=== PATIENT | male | born 1990 | race African-American/Black ===

== ENCOUNTER 2019-12-08 14:09 | Emergency (ER) | payer OTHER, SELFPAY ==
[2019-12-08 15:41] VITALS: BP 114/74; PULSE 105; RESP 18; TEMP 37.2; O2SAT 100
--- NOTE | 2019-12-08 17:04 | ED.GENADULT ---
HPI - General Adult General Chief complaint: Unspecified Stated complaint: feeling sick Time Seen by Provider: 12/08/19 16:48 Source: patient History of Present Illness HPI narrative: Patient is a 29 y/o male complaining of bed bug bite from last week. He states that his lower legs are severely itchy. There is no alleviating factor. He also feels heart palpitation. He denies any fever or chills. Related Data Home Medications Medication Instructions Recorded Confirmed No Home Medications 03/19/19 03/19/19 Allergies Allergy/AdvReac Type Severity Reaction Status Date / Time No Known Allergies Allergy Unverified 07/29/17 10:49 Review of Systems Constitutional: Constitutional: Denies chills, Denies fever(s), Denies headache(s) and Denies weakness Eyes: Eyes: Denies blurry vision ENT: Denies headache(s) and Denies neck pain Cardiovascular: Cardiovascular: Denies chest pain and Denies dyspnea Respiratory: Respiratory: Denies cough and Denies dyspnea Gastrointestinal: Gastrointestinal: Denies abdominal pain, Denies diarrhea, Denies nausea and Denies vomiting Genitourinary: Genitourinary: Denies hematuria and Denies dysuria Musculoskeletal: Musculoskeletal: Denies back pain and Denies neck pain Integumentary/Breasts: Skin/Breast: Reports as per HPI, Reports pruritus and Reports erythema Neurologic: Denies headache(s) and Denies weakness PMFSH Past Medical History Medical History Hidradenitis suppurativa Surgical History Surgical History S/P small bowel resection Family History Family History Sibling [place] disease Other No family history of abnormal heart rhythm Social History Social History Social History: Patient is single. He does have a 5-year-old son. He is a full code. He currently works for the [employer]. Years smoked: 5 Smoking status: Former smoker Second hand tobacco smoke exposure: No Alcohol intake: current Substance use: never Substance use type: does not use Additional occupation/education comments: Pt works with the post office. Gender identity (if verbalized by the patient): Male Spiritual care concerns: No Exam Const: General: no acute distress and well developed Orientation/consciousness: oriented to person, oriented to place, oriented to time and patient oriented x3 HENMT: Head: normocephalic Ears: external ears normal General nose exam: Normal external nose present Eyes: General: appearance normal, both eyes and all related structures Conjunctivae: conjunctivae normal Neck: Neck: normal visual inspection and full ROM Chest: Chest palpation & inspection: normal inspection of the chest and no tenderness Resp: Effort & Inspection: normal respiratory effort Auscultation: clear to auscultation bilaterally Cardio: Rate: tachycardic Rhythm: regular rhythm GI: GI Palp: No abdominal tenderness and Yes Soft to palpation Skin: General skin exam: normal color and turgor normal Rashes: rashes noted (bilateral legs) Neuro: General: oriented to person, oriented to place, oriented to time and patient oriented x3 Cognition (Neuro): normal cognition Extrem: General: normal to inspection, full ROM and no pedal edema Psych: Appearance: grossly normal Mental Status: mental status grossly normal Affect: normal affect Course Vital Signs Vital signs: Vital Signs Temperature 37.2 C 12/08/19 15:41 Pulse Rate 105 H 12/08/19 15:41 Respiratory Rate 18 12/08/19 15:41 Blood Pressure 114/74 12/08/19 15:41 Pulse Oximetry 100 12/08/19 15:41 Temperature 37.2 C 12/08/19 15:41 Pulse Rate 98 12/08/19 19:23 Respiratory Rate 16 12/08/19 19:23 Blood Pressure 124/89 12/08/19 19:23 Pulse Oximetry 99 12/08/19 19:23
--- NOTE | 2019-12-08 17:09 | ECG_ITS ---
Measurements Intervals [place] Rate: 69 P: 56 IA: 143 QRS: 51 QRSD: 94 T: 47 QT: 409 QTc: 441 Interpretive Statements SINUS RHYTHM INCOMPLETE RIGHT BUNDLE BRANCH BLOCK BASELINE WANDER- I, II, AVL, V2-V3 BORDERLINE ECG Electronically Signed On 12-08-2019 18:40:45 CDT by Parth Yadav D.O.
[2019-12-08 17:25] LABS: Basophils Absolute Auto 0.1 K/mm3 (0.0-0.1); Basophils Percent Auto 0.8 % (0.2-1.2); Eosinophils Absolute Auto 0.1 K/mm3 (0-0.3); Eosinophils Percent Auto 0.7 % (0-4.4); Hematocrit 32.6 % (42.0-52.0); Immature Granulocyte Absolute 0.04 K/mm3 (0.00-0.031); Immature Granulocyte Percent A 0.6 % (0-0.5); Lymphocytes Absolute Auto 1.71 K/mm3 (0.9-3.2); Lymphocytes Percent Auto 23.8 % (18.3-44.2); Mean Corpuscular HGB Conc 30.7 g/dl (32-36); Mean Corpuscular Hemoglobin 23.3 pg (26-34); Mean Platelet Volume 9.6 fl (7.4-10.4); Monocytes Absolute Auto 0.8 K/mm3 (0.1-0.6); Monocytes Percent Auto 10.6 % (2.6-8.5); Neutrophils Absolute Auto 4.6 K/mm3 (1.3-6.7); Neutrophils Percent Auto 63.5 % (45.5-73.1); Platelet Count Result 417 k/mm3 (150-375); Red Blood Count 4.29 M/mm3 (4.6-6.20); Red Cell Distribution Width 15.9 % (11.5-14.5); White Blood Count 7.2 K/mm3 (4.5-10.0)
[2019-12-08 17:29] LABS: Add Urine Microscopic? YES; Appearance Urine Clear (Clear); Bacteria Urine Trace /hpf; Bilirubin Urine 1+ (Negative); Blood Urine Negative (Negative); Color Urine Yellow (Yellow); Glucose Urine UA Negative (Negative); Ketones Urine Negative (Negative); Leukocyte Esterase Ur Negative LEU/UL (Negative); Mucus Urine Heavy /lpf; Nitrate Urine Negative (Negative); Protein Urine 2+ mg/dL (Negative); RBC Urine 0-2 /hpf (0-2); Specific Grav Ur 1.025 (1.001-1.035); Squamous Epithelial Cell Urine Rare /hpf (Few); WBC Urine 0-3 /hpf
[2019-12-08 17:38] LABS: Anion Gap 12 mmol/L (8-16); Blood Urea Nitrogen 11 mg/dL (9-20); Calcium 9.6 mg/dL (8.4-10.2); Carbon Dioxide 29 mmol/L (22-30); Chloride 94 mmol/L (98-107); Estimated CRCL calculation 93 ml/min; Estimated Glomerular Filt Rate > 60; Glucose 106 mg/dL (75-110); Potassium 2.9 mmol/L (3.4-5.0); Sodium 135 mmol/L (137-145)
[2019-12-08 17:47] LABS: Amphetamine Screen Urine Negative (Negative); Barbiturate Screen Urine Negative (Negative); Benzodiazepines Screen Urine Negative (Negative); Cannabinoid Screen Urine Positive (Negative); Cocaine Screen Urine Negative (Negative); Methadone Screen Urine Negative (Negative); Opiate Screen Urine Negative (Negative); Phencyclidine Screen Urine Negative (Negative)
[2019-12-08 19:23] VITALS: BP 124/89; PULSE 98; RESP 16; O2SAT 99
[2019-12-08] MEDS: POTASSIUM CHLORIDE 20 MEQ TABLET 40 MEQ PO (19:31)
== END 2019-12-08 19:32 | disposition home or self-care (01) ==
PROVIDERS: Emergency Provider Emergency Medicine
DX: R21 Rash and other nonspecific skin eruption (principal); E87.6 Hypokalemia; D64.9 Anemia, unspecified; I45.10 Unspecified right bundle-branch block
CPT/HCPCS: 36415; 80048; 80307; 81001; 85025; 93005; 99283; A9270

== ENCOUNTER 2020-08-27 14:40 | Observation (INO) | payer OTHER, SELFPAY ==
[2020-08-27] VITALS (26 sets, daily range): BP systolic 127–154; BP diastolic 76–97; PULSE 80–108; RESP 4–18; TEMP 36.3–37.5; O2SAT 97–100; BMI 17.2
--- NOTE | ~2020-08-27 | CT_ITS ---
EXAMINATION: CT abdomen pelvis wo con DATE: 08/27/2020 23:07 INDICATION: Nausea, vomiting and anemia TECHNIQUE: Computed tomography (CT) of the abdomen and pelvis was performed without intravenous contr ast. Automated exposure control and iterative reconstruction technique were employed. The dose-length product was 176.58 mGy-cm. COMPARISON: None FINDINGS: Lung bases are clear. Heart size is normal. No pericardial or pleural effusion. Marked diffuse hepati c steatosis. Gallbladder, spleen, pancreas, bilateral adrenal glands and kidneys are normal. There ar e suture lines along the lesser and greater curvature of the proximal stomach. Bowels including the a ppendix are normal. Bladder and prostate are normal. No free intraperitoneal gas or fluid. No patholo gically enlarged abdominal or pelvic lymphadenopathy. Chronic bilateral L5 pars intra-articular is de fects with 2 mm anterolisthesis on S1. IMPRESSION: 1. No acute intra-abdominal/pelvic process. 2. Prominent diffuse hepatic steatosis. 3. 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 Reviewed, dictated and finalized at location A.
[2020-08-27 15:06] LABS: Basophils Percent Auto 0.2 % (0.2-1.2); Hematocrit 32.6 % (42.0-52.0); Hemoglobin 9.3 g/dL (14.0-18.0); Immature Granulocyte Absolute 0.03 K/mm3 (0.00-0.031); Immature Granulocyte Percent A 0.3 % (0-0.5); Lymphocytes Absolute Auto 0.55 K/mm3 (0.9-3.2); Lymphocytes Percent Auto 5.6 % (18.3-44.2); Mean Corpuscular HGB Conc 28.5 g/dl (32-36); Mean Corpuscular Volume 70.3 fl (80-100); Mean Platelet Volume 10.2 fl (7.4-10.4); Monocytes Absolute Auto 0.8 K/mm3 (0.1-0.6); Monocytes Percent Auto 8.6 % (2.6-8.5); Neutrophils Absolute Auto 8.3 K/mm3 (1.3-6.7); Neutrophils Percent Auto 85.3 % (45.5-73.1); Platelet Count Result 265 k/mm3 (150-375); Red Blood Count 4.64 M/mm3 (4.6-6.20); Red Cell Distribution Width 18.3 % (11.5-14.5); White Blood Count 9.7 K/mm3 (4.5-10.0)
[2020-08-27 15:18] LABS: Hypochromasia 1+ (NORMAL); Ovalocytes 1+ (NORMAL); Platelet Estimate Adequate (Adequate)
[2020-08-27 15:27] LABS: Alanine Aminotransferase 224 U/L (4-50); Albumin Level 5.9 g/dL (3.5-5.1); Alkaline Phosphatase 157 U/L (38-126); Anion Gap 32 mmol/L (8-16); Bilirubin,Total 2.1 mg/dL (0.2-1.3); Blood Urea Nitrogen 12 mg/dL (9-20); Calcium 10.8 mg/dL (8.4-10.2); Carbon Dioxide 13 mmol/L (22-30); Chloride 93 mmol/L (98-107); Creatine Kinase 508 U/L (55-170); Estimated CRCL calculation 63 ml/min; Estimated Glomerular Filt Rate > 60; Glucose 118 mg/dL (75-110); Potassium 4.3 mmol/L (3.4-5.0); Sodium 138 mmol/L (137-145)
[2020-08-27 15:36] LABS: Aspartate Amino Transferase 904 U/L (17-59)
--- NOTE | 2020-08-27 18:37 | ED.GENADULT ---
HPI - General Adult General Chief complaint: Unspecified Stated complaint: cramping Time Seen by Provider: 08/27/20 18:17 History of Present Illness HPI narrative: 29 yo male with no known medical history presents to the ED for cramping. He reports that he has had diffuse cramping of his entire body since leaving work this morning at midnight. He also reports vomiting and diaphoresis. He works in a hot factory and thinks that he just didn't drink enough water. He had a similar presentation last year and was found to have significant lactic acidosis as well as a few other metabolic abnormalities. Related Data Home Medications Medication Instructions Recorded Confirmed No Home Medications 03/19/19 03/19/19 Allergies Allergy/AdvReac Type Severity Reaction Status Date / Time No Known Allergies Allergy Unverified 07/29/17 10:49 Review of Systems Review of Systems: All systems reviewed & are unremarkable except as noted in HPI and below Constitutional: Constitutional: Denies fever(s) Eyes: Eyes: Reports no additional eye complaints ENT: Reports system reviewed and no additional complaints, except as documented Cardiovascular: Cardiovascular: Denies chest pain Respiratory: Respiratory: Denies dyspnea Gastrointestinal: Gastrointestinal: Denies abdominal pain Neurologic: Reports system reviewed and no additional complaints, except as documented [facility] Past Medical History Medical History (Updated 08/27/20 @ 22:01 by Johnathan Andersen MD) Hidradenitis suppurativa Surgical History Surgical History S/P small bowel resection Family History Family History Sibling [place] disease Other No family history of abnormal heart rhythm Social History Social History Social History: Patient is single. He does have a 5-year-old son. He is a full code. He currently works for the [employer]. Years smoked: 5 Smoking status: Former smoker Second hand tobacco smoke exposure: No Alcohol intake: current Substance use: never Substance use type: does not use Additional occupation/education comments: Pt works with the post office. Gender identity (if verbalized by the patient): Male Spiritual care concerns: No Exam Const: General: cooperative, comfortable and alert Nutritional Appearance: thin Orientation/consciousness: patient oriented x3 HENMT: Head: normal to inspection Eyes: Pupils: Equal, round and reactive pupils present Neck: Neck: normal visual inspection and no lymphadenopathy Chest: Chest palpation & inspection: no tenderness Resp: Effort & Inspection: normal respiratory effort Auscultation: clear to auscultation bilaterally, no rales, no rhonchi and no wheezes Cardio: Jugular venous distension: no JVD Rate: regular rate Rhythm: regular rhythm Heart sounds: no murmurs GI: Inspection: non-distended GI Palp: Yes Soft to palpation and No Tenderness to palpation present (GI) Skin: General skin exam: normal color Neuro: General: patient oriented x3 and moves all extremities Speech: normal speech Extrem: General: no edema Psych: Appearance: well kempt Affect: normal affect Course Vital Signs Vital signs: Vital Signs Temperature 36.3 C L 08/27/20 14:45 Pulse Rate 108 H 08/27/20 14:45 Respiratory Rate 18 08/27/20 14:45 Blood Pressure 137/95 H 08/27/20 14:45 Pulse Oximetry 100 08/27/20 14:45 Temperature 36.3 C L 08/27/20 14:45 Pulse Rate 100 08/27/20 19:00 Respiratory Rate 12 08/27/20 19:01 Blood Pressure 154/90 H 08/27/20 20:15 Pulse Oximetry 100 08/27/20 20:01 Medical Decision Making MDM Narrative Medical decision making narrative: He has multiple lab abnormlities suggesting dehydration and malnutrition. I will admit for observation Medical Record
[2020-08-27] MEDS: LACTATED RINGERS 1,000 ML 999 ML IV CONT (18:53)
--- NOTE | 2020-08-27 19:01 | PC.NURSE ---
Pt. respirations were not 4 breaths a min. Charted in error.
[2020-08-27 19:15] LABS: Alveolar/Arterial O2 Gradient 20.8 mmHg; Base Excess ABG -3.5 mEq/l (+/-2.0); Device ROOM AIR; Fractional Inspired Oxygen 21 %; HCO3 ABG 19.1 mEq/l (22.0-26.0); Oxygen Saturation ABG 97.9 % (95.0-100.0); Oxyhemoglobin 95.9 % THb (90.0-100.0); PCO2 ABG 26.4 mmHg (35.0-45.0); PO2 ABG 97.3 mmHg (80.0-100.0); PO2 FiO2 Ratio Arterial Blood 4.63 %; Site Drawn RIGHT BRACHIAL; Total Hemoglobin 9.5 g/dL (12.0-18.0); pH ABG 7.478 (7.350-7.450)
[2020-08-27] MEDS: SODIUM CHLORIDE 0.9% IV 1,000 ML 999 ML IV CONT (19:19)
--- NOTE | 2020-08-27 19:20 | PC.NURSE ---
Report received from RUBEN Franz. Pt's IVF continue to infuse, additional IVF initiated. Pt made aware of need for urine collection and given urinal. Denies needs at present.
[2020-08-27 19:27] LABS: Immature Reticulocyte Fraction 24.7 % (3.0-15.9); Reticulocyte Percent 1.38 % (0.7-4.3); Reticulocytes Absolute 0.06 B/L (32.2-175.7)
[2020-08-27 19:38] LABS: Lactic Acid Reflex 2.4 mmol/L (0.7-2.1)
[2020-08-27 19:41] LABS: INR 1.2; Partial Thromboplastin Time 25.3 SECONDS (22.3-36.8); Prothrombin Time 15.6 Seconds (11.1-14.7)
[2020-08-27 19:55] LABS: Iron 123 ug/dL (49-181)
[2020-08-27 20:04] LABS: Percent Iron Saturation 23 % (20-50)
--- NOTE | 2020-08-27 20:42 | PC.NURSE ---
Pt states is feeling a lot better . UA collected and sent.
[2020-08-27 20:49] LABS: Folic Acid 2.4 ng/mL (2.76->20)
[2020-08-27 21:04] LABS: Add Urine Microscopic? YES; Amorphous Sediment Urine Few; Appearance Urine Cloudy (Clear); Bacteria Urine Trace /hpf; Bilirubin Urine Negative (Negative); Blood Urine 1+ (Negative); Color Urine Amber (Yellow); Glucose Urine UA Negative (Negative); Hyaline Casts Urine 50+ /lpf; Ketones Urine 2+ mg/dL (Negative); Leukocyte Esterase Ur Negative LEU/UL (Negative); Mucus Urine Few /lpf; Nitrate Urine Negative (Negative); Protein Urine 3+ mg/dL (Negative); RBC Urine 0-2 /hpf (0-2); Specific Grav Ur 1.026 (1.001-1.035); Squamous Epithelial Cell Urine Few /hpf (Few); WBC Urine 0-3 /hpf
[2020-08-27 22:23] LABS: Reflex Lactic Acid Yes or No Add Lactic
[2020-08-27] MEDS: LACTATED RINGERS 1,000 ML 125 ML IV CONT (22:48)
[2020-08-27 22:51] LABS: Lactic Acid 1.1 mmol/L (0.7-2.1)
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
--- NOTE | 2020-08-27 23:40 | ADMGEN ---
This patient, Gerson Geiger, was admitted to [facility] Surg Room 312-01. Patient/family oriented to hospital policies and general routines including ID bracelet, bed and alarms, visiting hours, pain management, procedures, bathroom and other care routines, personal items, smoking policy, room service/diet, and visiting hours. Information on how to activate the Rapid Response Team has been discussed. Patient/Family are encouraged to report perceived risks to care and to ask questions if they do not understand what they are told or what they should do.
[2020-08-28] MEDS: THIAMINE HCL INJ 100 MG, FOLIC ACID INJ 1 MG, MULTIVITAMINS-12 INJ VIAL 1 5 ML, MULTIVI... IV CONT (00:04)
[2020-08-28 06:00] VITALS: BP 135/77; PULSE 76; RESP 18; TEMP 37.2; O2SAT 100
[2020-08-28 06:44] LABS: Basophils Percent Auto 0.3 % (0.2-1.2); Eosinophils Absolute Auto 0.1 K/mm3 (0-0.3); Eosinophils Percent Auto 2.1 % (0-4.4); Hematocrit 28.3 % (42.0-52.0); Hemoglobin 8.2 g/dL (14.0-18.0); Immature Granulocyte Absolute 0.03 K/mm3 (0.00-0.031); Immature Granulocyte Percent A 0.5 % (0-0.5); Lymphocytes Absolute Auto 0.97 K/mm3 (0.9-3.2); Lymphocytes Percent Auto 16.9 % (18.3-44.2); Mean Corpuscular Hemoglobin 19.9 pg (26-34); Mean Corpuscular Volume 68.7 fl (80-100); Mean Platelet Volume 10.9 fl (7.4-10.4); Monocytes Absolute Auto 0.7 K/mm3 (0.1-0.6); Neutrophils Absolute Auto 3.9 K/mm3 (1.3-6.7); Neutrophils Percent Auto 68.2 % (45.5-73.1); Platelet Count Result 207 k/mm3 (150-375); Red Blood Count 4.12 M/mm3 (4.6-6.20); Red Cell Distribution Width 17.9 % (11.5-14.5); White Blood Count 5.7 K/mm3 (4.5-10.0)
[2020-08-28 06:53] LABS: Alanine Aminotransferase 152 U/L (4-50); Albumin Level 4.6 g/dL (3.5-5.1); Alkaline Phosphatase 114 U/L (38-126); Anion Gap 12 mmol/L (8-16); Aspartate Amino Transferase 502 U/L (17-59); Bilirubin,Total 0.9 mg/dL (0.2-1.3); Blood Urea Nitrogen 13 mg/dL (9-20); Calcium 9.2 mg/dL (8.4-10.2); Carbon Dioxide 25 mmol/L (22-30); Chloride 100 mmol/L (98-107); Estimated CRCL calculation 83 ml/min; Estimated Glomerular Filt Rate > 60; Glucose 97 mg/dL (75-110); Sodium 137 mmol/L (137-145)
[2020-08-28 07:19] LABS: Hypochromasia 1+ (NORMAL); Ovalocytes 1+ (NORMAL); Platelet Estimate Adequate (Adequate); Poikilocytosis 1+ (NORMAL)
[2020-08-28 07:20] LABS: Target Cells 1+ (NORMAL)
[2020-08-28 08:00] VITALS: O2SAT 100
[2020-08-28 10:08] VITALS: O2SAT 97
[2020-08-28] MEDS: LACTATED RINGERS 1,000 ML 125 ML IV CONT (10:58)
[2020-08-28 14:00] VITALS: BP 131/83; PULSE 89; RESP 20; TEMP 37.2; O2SAT 100
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
[2020-08-28 22:00] VITALS: BP 129/82; PULSE 60; RESP 18; TEMP 36.6; O2SAT 97
[2020-08-28] MEDS: LACTATED RINGERS 1,000 ML 50 ML IV CONT (22:33)
[2020-08-29 05:54] VITALS: BP 144/78; PULSE 58; RESP 16; TEMP 36.4; O2SAT 100
[2020-08-29 07:51] LABS: Hepatitis B Surface Antigen Negative (Negative)
[2020-08-29 07:55] LABS: Hematocrit 26.3 % (42.0-52.0); Hemoglobin 7.6 g/dL (14.0-18.0); Mean Corpuscular HGB Conc 28.9 g/dl (32-36); Mean Corpuscular Hemoglobin 19.9 pg (26-34); Mean Platelet Volume 10.4 fl (7.4-10.4); Platelet Count Result 175 k/mm3 (150-375); Red Blood Count 3.81 M/mm3 (4.6-6.20); Red Cell Distribution Width 18.2 % (11.5-14.5); White Blood Count 4.2 K/mm3 (4.5-10.0)
[2020-08-29 08:08] LABS: Hepatitis C Virus Antibody Negative (Negative)
[2020-08-29 10:11] LABS: Alanine Aminotransferase 137 U/L (4-50); Albumin Level 4.2 g/dL (3.5-5.1); Alkaline Phosphatase 94 U/L (38-126); Anion Gap 10 mmol/L (8-16); Aspartate Amino Transferase 377 U/L (17-59); Bilirubin,Total 0.7 mg/dL (0.2-1.3); Blood Urea Nitrogen 12 mg/dL (9-20); Calcium 9.3 mg/dL (8.4-10.2); Carbon Dioxide 25 mmol/L (22-30); Chloride 102 mmol/L (98-107); Estimated CRCL calculation 108 ml/min; Estimated Glomerular Filt Rate > 60; Glucose 89 mg/dL (75-110); Potassium 3.7 mmol/L (3.4-5.0); Sodium 137 mmol/L (137-145)
[2020-08-29 10:17] LABS: Iron 28 ug/dL (49-181)
--- NOTE | 2020-08-29 10:21 | PM.DS ---
DS: Admitting Diagnosis Admitting Diagnosis Admitting Diagnosis: Nausea with emesis and abdominal pain DS: Discharge Diagnosis Discharge Diagnosis (1) Dehydration: Code(s): E86.0 - Dehydration Status: Acute Assessment and Plan: Possible viral GE Possibly related to cannabis use IV fluids Push oral intake F/u labs as outpatient (2) Elevated LFTs: Code(s): R94.5 - Abnormal results of liver function studies Status: Acute Assessment and Plan: Hx GILES Possible contribution from intermittent alcohol use Less likely viral hepatitis LFTs improving Needs f/u with PCP (3) Acidosis, lactic: Code(s): E87.2 - Acidosis Status: Acute Assessment and Plan: Resolved (4) Leukocytosis: Qualifiers: Leukocytosis type: other Qualified Code(s): D72.828 - Other elevated white blood cell count Code(s): D72.829 - Elevated white blood cell count, unspecified Status: Acute Assessment and Plan: Likely demargination Resolved. (5) History of partial gastrectomy: Code(s): Z90.3 - Acquired absence of stomach [part of] Status: Acute Assessment and Plan: Patient with history of partial gastric demonstrated by CT scan this in part explains the patient's nutritional deficiency (6) Iron deficiency anemia: Qualifiers: Iron deficiency anemia type: unspecified iron deficiency Qualified Code(s): D50.9 - Iron deficiency anemia, unspecified Code(s): D50.9 - Iron deficiency anemia, unspecified Status: Acute Assessment and Plan: Likely secondary to partial gastrectomy. Also low folic acid, so supplement IV then PO Follow-up in outpatient setting (7) Chronic abdominal pain: Code(s): R10.9 - Unspecified abdominal pain; G89.29 - Other chronic pain Status: Acute Assessment and Plan: Supportive care (8) Cannabis abuse: Code(s): F12.10 - Cannabis abuse, uncomplicated Status: Acute Assessment and Plan: Likely contributing to nausea and vomiting. Discussed with patient. DS: Summary Hospital Course Reason for hospitalization: Nausea vomiting and abdominal discomfort Hospital Course: Patient was admitted with nausea vomiting abdominal pain. He had anemia and leukopenia no was chronic. History of partial gastrectomy and malnutrition. Chronic user of cannabis. History of non alcoholic steatohepatitis as well as chronic abdominal pain. CT scan revealed fatty liver. No acute abnormalities. IV fluid and anti emetics controlled his symptoms. By day of discharge she was tolerating his diet. He was found to have both iron deficiency and folate deficiency. B12 was adequate. Status at Discharge Overall status at discharge: patient is back to baseline Time Spent with Patient Time attestation: Total time spent providing and/or coordinating discharge services: Time spent: Greater than 30 minutes Exam Narrative: Exam Narrative: HEENT: PERRL, sclerae nonicteric, pharyngeal mucosa pink and intact NECK: No JVD CHEST: Clear to auscultation. Normal effort. HEART: NL S1/S2, regular, no murmur ABDOMEN: BS+, soft, nontender, no mass, no bruits EXTREMITIES: No cyanosis, edema, or clubbing NEUROLOGIC: CN intact and symmetric to inspection. MUSCULOSKELETAL: Tone and strength symmetric. PSYCH: Alert. Oriented to person, place, and time. DS: Data Data Completed and Pending Labs on day of discharge: Labs from last 24 hours 08/29/20 08/29/20 08/29/20 06:11 06:11 06:11 WBC 4.2 L RBC 3.81 L Hgb 7.6 L Hct 26.3 L MCV 69.0 L MCH 19.9 L MCHC 28.9 L RDW 18.2 H Plt Count 175 MPV 10.4 Sodium 137 Potassium 3.7 Chloride 102 Carbon Dioxide 25 Anion Gap 10 BUN 12 Creatinine 0.60 L Estim Creat Clear Calc 108 Estimated GFR > 60 Glucose 89 Calcium 9.3 Iron 28 L TIBC Pending % Saturation Pending Total Bilirubin 0.7
[2020-08-29 10:27] LABS: Percent Iron Saturation 6 % (20-50)
[2020-08-29] MEDS: FOLIC ACID 1 MG/0.2 ML INJ IV PUSH (12:14)
[2020-09-04 09:35] LABS: Hematocrit 29.2 % (38.5-50.0); Hemoglobin 8.7 g/dL (13.2-17.1); MCH 20.5 pg (27.0-33.0); MCV 68.7 FL (80.0-100.0); RDW 19.2 % (11.0-15.0); Red Blood Cell Count 4.25 Mill/uL (4.20-5.80)
== END 2020-08-29 12:20 | disposition home or self-care (01) ==
LOC: ANHED 22:01 → ANH3MEDSUR 08-28 11:05
PROVIDERS: Admitting Provider Internal Medicine; Emergency Provider Emergency Medicine; Visit Provider Internal Medicine
DX: E86.0 Dehydration (principal); R94.5 Abnormal results of liver function studies; E87.2 Acidosis; D50.9 Iron deficiency anemia, unspecified; D52.9 Folate deficiency anemia, unspecified; R10.9 Unspecified abdominal pain; G89.29 Other chronic pain; F12.10 Cannabis abuse, uncomplicated; Z90.3 Acquired absence of stomach [part of]
CPT/HCPCS: 36415; 36600; 74176; 80053; 81001; 82550; 82607; 82728; 82746; 82805; 83021; 83540; 83550; 83605; 84443; 85025; 85027; 85046; 85610; 85730; 86803; 87340; 96360; 96361; 96374; 99285; G0378; J3411; J3475; J7030; J7042; J7120

== ENCOUNTER 2021-11-04 15:40 | Emergency (ER) | payer OTHER, SELFPAY ==
--- NOTE | ~2021-11-04 | CT_ITS ---
EXAMINATION: CT brain wo con DATE: 11/04/2021 16:42 INDICATION: Confusion. TECHNIQUE: Computed tomography (CT) of the head was performed without intravenous contrast. The mA wa s adjusted according to patient size. Iterative reconstruction technique was employed. The dose-lengt h product was 908.00 mGy-cm. COMPARISON: None FINDINGS: There is no intracranial hemorrhage, acute infarction, or abnormal intracranial mass lesion . The ventricles are normal in size. The orbits are normal. There is mild mucosal thickening in the e thmoid sinuses. The mastoid air cells are normal. There is cerumen in left external auditory canal. IMPRESSION: 1. Normal brain. Reviewed, dictated and finalized at location A. IMPRESSION: 1. Normal brain.
[2021-11-04 15:34] VITALS: BP 121/86; PULSE 110; RESP 26; O2SAT 96
--- NOTE | 2021-11-04 15:51 | ECG_ITS ---
Measurements Intervals [place] Rate: 112 P: 73 MT: 175 QRS: -50 QRSD: 100 T: 74 QT: 380 QTc: 520 Interpretive Statements SINUS TACHYCARDIA S1-S2-S3 PATTERN, CONSISTENT WITH PULMONARY DISEASE, RVH, OR NORMAL VARIANT LEFT ANTERIOR FASCICULAR BLOCK [QRS AXIS <= -45, QR IN I, RS IN II] NONSPECIFIC T-WAVE ABNORMALITY COMPARED TO ECG 12/08/2019 17:28:34 SINUS TACHYCARDIA NOW PRESENT RIGHT VENTRICULAR HYPERTROPHY NOW PRESENT T-WAVE ABNORMALITY NOW PRESENT Electronically Signed On 11-05-2021 13:32:39 CDT by Sahra Chowdhury M.D.
[2021-11-04 16:21] LABS: Alanine Aminotransferase 42 U/L (6-50); Albumin Level 5.1 g/dL (3.5-5.1); Alkaline Phosphatase 133 U/L (38-126); Anion Gap 21 mmol/L (8-16); Aspartate Amino Transferase 153 U/L (17-59); Bilirubin,Total 0.6 mg/dL (0.2-1.3); Blood Urea Nitrogen 10 mg/dL (9-20); Calcium 8.7 mg/dL (8.4-10.2); Carbon Dioxide 24 mmol/L (22-30); Chloride 104 mmol/L (98-107); Estimated Glomerular Filt Rate > 60; Glucose 107 mg/dL (65-110); Sodium 149 mmol/L (137-145)
[2021-11-04 16:22] LABS: INR 1.1; Prothrombin Time 13.9 Seconds (11.1-14.7)
--- NOTE | 2021-11-04 16:22 | ED.ALCOHOL ---
HPI - Alcohol General Chief Complaint: Alcohol <Jaison Mcclendon APRN - Last Filed: 11/05/21 19:45> Stated Complaint: altered LOC <Jaison Mcclendon APRN - Last Filed: 11/05/21 19:45> Time Seen by Provider: 11/04/21 15:59 <Jaison Mcclendon APRN - Last Filed: 11/05/21 19:45> History of Present Illness HPI narrative: 31-year-old male presented the emergency room for evaluation of altered mental status. According to EMS, patient was found in the bushes unresponsive. EMS suspected alcohol abuse. On initial exam, patient was not responding appropriately. Patient denies excessive alcohol use. Denies any drug use. Denies any injury or trauma. Patient is alert and oriented x2 <Jaison Mcclendon APRN - Last Filed: 11/05/21 19:45> Related Data Allergies/Adverse Reactions: Allergies Allergy/AdvReac Type Severity Reaction Status Date / Time No Known Allergies Allergy Unverified 07/29/17 10:49 <Jaison Mcclendon APRN - Last Filed: 11/05/21 19:45> Review of Systems Review of Systems: CONSTITUTIONAL: Denies fever, chills, or sweats. EYES: Denies visual changes, redness, or discharge. ENT: Denies rhinorrhea, congestion, sore throat, or otalgia. CARDIOVASCULAR: Denies chest pain, palpitations, or edema. RESPIRATORY: Denies cough or dyspnea. GASTROINTESTINAL: Denies abdominal pain, nausea, vomiting, or diarrhea. GENITOURINARY: Denies dysuria or hematuria. SKIN: Denies rash or itching. MUSCULOSKELETAL: Denies back pain, joint pain, or myalgia. NEUROLOGIC: Denies headache, numbness, dizziness, or weakness. PSYCHIATRIC: Denies anxiety or depression. <Jaison Mcclendon APRN - Last Filed: 11/05/21 19:45> [facility] Past Medical History Medical History: Medical History (Updated 11/05/21 @ 00:00 by Sherita Dachad) Hidradenitis suppurativa <Jaison Mcclendon APRN - Last Filed: 11/05/21 19:45> Surgical History Surgical History: Surgical History S/P small bowel resection <Jaison Mcclendon APRN - Last Filed: 11/05/21 19:45> Family History Family History: Family History Sibling [place] disease Other No family history of abnormal heart rhythm <Jaison Mcclendon APRN - Last Filed: 11/05/21 19:45> Social History Social History: Social History Social History: Patient is single. He does have a 5-year-old son. He is a full code. He currently works for the [employer]. Smoking packs per day: 0.2 Smoking cigarettes per day: 4.0 Years smoked: 5 Smoking pack-years: 1.00 Smoking status: Former smoker Second hand tobacco smoke exposure: No Alcohol intake: current Alcohol use details: He reports drinking 1-16 oz cup of vodka 3-4 times per week. Substance use: never Substance use type: marijuana Last use: 08/24/20 Additional occupation/education comments: Pt works with the post office. Gender identity (if verbalized by the patient): Male Spiritual care concerns: No <Jaison Mcclendon APRN - Last Filed: 11/05/21 19:45> Exam Narrative: GENERAL: Well-appearing, well-nourished, no physical limitations, and in no acute distress. HEAD: Normocephalic, atraumatic. EYES: Conjunctivae normal, PERRLA and EOMI. NECK: Supple. CHEST: Clear to auscultation. No respiratory distress. No wheezes rales or rhonchi. No tenderness. HEART: Regular rate and rhythm. No murmur heard. Normal peripheral pulses. ABDOMEN: Soft, nontender, nondistended, normal active bowel sounds. SKIN: Warm, dry, no rash. No noted wounds NEURO: No focal deficits. Alert and oriented x to. MAEW. CN's II-XI intact bilaterally. Slurring of speech PSYCH: Uncooperative. <Jaison Mcclendon APRN - Last Filed: 11/05/21 19:45> Course Course Emergency Course: 1615: Patient was observed getting up from the bed and attempting to elope. Amrit
[2021-11-04 16:23] LABS: Lactic Acid Reflex 5.7 mmol/L (0.7-2.0)
[2021-11-04 16:28] LABS: Acetaminophen < 10 ug/mL (10-30); Salicylate < 1.0 mg/dL (2-20)
[2021-11-04 16:29] LABS: Ethanol 503 mg/dL (<10)
[2021-11-04] MEDS: SODIUM CHLORIDE 0.9% IV 1,000 ML 999 ML IV CONT ×2 (16:52→20:46)
[2021-11-04 16:55] LABS: Basophils Absolute Auto 0.1 K/mm3 (0.0-0.1); Basophils Percent Auto 1.3 % (0.2-1.2); Eosinophils Absolute Auto 0.1 K/mm3 (0-0.3); Hematocrit 42.4 % (42.0-52.0); Hemoglobin 13.8 g/dL (14.0-18.0); Immature Granulocyte Absolute 0.01 K/mm3 (0.00-0.031); Immature Granulocyte Percent A 0.2 % (0-0.5); Lymphocytes Absolute Auto 1.13 K/mm3 (0.9-3.2); Lymphocytes Percent Auto 21.6 % (18.3-44.2); Mean Corpuscular HGB Conc 32.5 g/dl (32-36); Mean Corpuscular Hemoglobin 32.1 pg (26-34); Mean Corpuscular Volume 98.6 fl (80-100); Mean Platelet Volume 8.7 fl (7.4-10.4); Monocytes Absolute Auto 0.4 K/mm3 (0.1-0.6); Monocytes Percent Auto 7.8 % (2.6-8.5); Neutrophils Absolute Auto 3.6 K/mm3 (1.3-6.7); Neutrophils Percent Auto 68.1 % (45.5-73.1); Platelet Count Result 257 k/mm3 (150-375); Red Cell Distribution Width 15.9 % (11.5-14.5); White Blood Count 5.2 K/mm3 (4.5-10.0)
[2021-11-04] MEDS: THIAMINE HCL 200 MG/2 ML VIAL 100 MG IV PUSH (17:28)
[2021-11-04 18:37] VITALS: RESP 15; O2SAT 96
[2021-11-04 18:47] LABS: Appearance Urine Clear (Clear); Bilirubin Urine Negative (Negative); Blood Urine 2+ (Negative); Color Urine Yellow (Yellow); Glucose Urine UA Negative (Negative); Ketones Urine 2+ mg/dL (Negative); Leukocyte Esterase Ur Negative LEU/UL (Negative); Nitrate Urine Negative (Negative); Protein Urine 3+ mg/dL (Negative); Specific Grav Ur >= 1.030 (1.001-1.035); Urobilinogen Urine 0.2 mg/dL (<2.0); pH Urine 5.5 (5.0-9.0)
[2021-11-04 18:55] LABS: Add Urine Microscopic? YES; Mucus Urine Rare /lpf; Squamous Epithelial Cell Urine Rare /hpf (Few)
[2021-11-04 19:07] LABS: Reflex Lactic Acid Yes or No Add Lactic
[2021-11-04 19:12] LABS: Amphetamine Screen Urine Negative (Negative); Barbiturate Screen Urine Negative (Negative); Benzodiazepines Screen Urine Negative (Negative); Cannabinoid Screen Urine Positive (Negative); Cocaine Screen Urine Negative (Negative); Methadone Screen Urine Negative (Negative); Opiate Screen Urine Negative (Negative); Phencyclidine Screen Urine Negative (Negative)
--- NOTE | 2021-11-04 19:15 | PC.NURSE ---
Bedside report given to RUBEN Stone
[2021-11-04 19:18] VITALS: BP 128/86; PULSE 115; RESP 18; O2SAT 97
[2021-11-04] MEDS: SODIUM CHLORIDE 0.9% IV 500 ML 999 ML IV CONT (19:18)
[2021-11-04 20:10] LABS: Lactic Acid 3.8 mmol/L (0.7-2.0)
[2021-11-04 21:02] VITALS: BP 136/90; PULSE 86; RESP 18; O2SAT 97
== END 2021-11-04 21:04 | disposition home or self-care (01) ==
PROVIDERS: Emergency Medicine; Emergency Provider Nurse Practitioner Family
DX: F10.129 Alcohol abuse with intoxication, unspecified (principal); Y90.8 Blood alcohol level of 240 mg/100 ml or more; R00.0 Tachycardia, unspecified; I44.4 Left anterior fascicular block; R94.31 Abnormal electrocardiogram [ECG] [EKG]
CPT/HCPCS: 36415; 70450; 80053; 80307; 81001; 83605; 85025; 85610; 85730; 87086; 93005; 96361; 96374; 99284; J3411; J7030; J7040

== ENCOUNTER 2022-07-29 11:38 | Emergency (ER) | payer OTHER, SELFPAY ==
[2022-07-29 12:00] VITALS: BP 121/80; PULSE 105; RESP 18; TEMP 36.9; O2SAT 99
[2022-07-29 13:27] LABS: Basophils Absolute Auto 0.1 K/mm3 (0.0-0.1); Eosinophils Percent Auto 0.4 % (0-4.4); Hematocrit 29.6 % (42.0-52.0); Hemoglobin 8.9 g/dL (14.0-18.0); Lymphocytes Absolute Auto 0.84 K/mm3 (0.9-3.2); Lymphocytes Percent Auto 36.4 % (18.3-44.2); Mean Corpuscular HGB Conc 30.1 g/dl (32-36); Mean Corpuscular Hemoglobin 23.4 pg (26-34); Mean Corpuscular Volume 77.9 fl (80-100); Mean Platelet Volume 10.4 fl (7.4-10.4); Monocytes Absolute Auto 0.3 K/mm3 (0.1-0.6); Monocytes Percent Auto 12.6 % (2.6-8.5); Neutrophils Absolute Auto 1.1 K/mm3 (1.3-6.7); Neutrophils Percent Auto 47.6 % (45.5-73.1); Platelet Count Result 124 k/mm3 (150-375); Red Cell Distribution Width 19.1 % (11.5-14.5); White Blood Count 2.3 K/mm3 (4.5-10.0)
[2022-07-29 13:39] LABS: Alanine Aminotransferase 174 U/L (6-50); Alkaline Phosphatase 115 U/L (38-126); Anion Gap 19 mmol/L (8-16); Aspartate Amino Transferase 566 U/L (17-59); Bilirubin,Total 0.7 mg/dL (0.2-1.3); Blood Urea Nitrogen 8 mg/dL (9-20); Calcium 8.8 mg/dL (8.4-10.2); Carbon Dioxide 28 mmol/L (22-30); Chloride 93 mmol/L (98-107); Estimated Glomerular Filt Rate > 60; Glucose 101 mg/dL (65-110); Lipase 164 U/L (23-300); Sodium 140 mmol/L (137-145)
[2022-07-29 13:49] VITALS: BP 115/67; PULSE 115; TEMP 36.6; O2SAT 100
--- NOTE | 2022-07-29 13:49 | ECG_ITS ---
Measurements Intervals [place] Rate: 102 P: 81 WI: 123 QRS: 49 QRSD: 86 T: 71 QT: 347 QTc: 454 Interpretive Statements SINUS TACHYCARDIA VOLTAGE CRITERIA FOR LVH BORDERLINE ST-T WAVE ABNORMALITY- INF/LAT LEADS NONSPECIFIC T-WAVE ABNORMALITY BORDERLINE ECG COMPARED TO ECG 11/04/2021 16:09:12 NO SIGNIFICANT CHANGES Electronically Signed On 07-29-2022 20:49:28 CDT by Parth Yadav D.O.
[2022-07-29 16:25] LABS: Magnesium 2.1 mg/dL (1.6-2.3)
[2022-07-29] MEDS: ONDANSETRON INJ 4 MG/2 ML VIAL IV PUSH (16:33)
[2022-07-29] MEDS: LACTATED RINGERS 1,000 ML 999 ML IV CONT ×2 (16:33→18:10)
[2022-07-29] MEDS: POTASSIUM CHLORIDE 20 MEQ TABLET 40 MEQ PO (16:33)
[2022-07-29 16:51] LABS: Influenza A QL RT-PCR Negative (Negative); Influenza B QL RT-PCR Negative (Negative); SARS-CoV-2 RNA PCR Negative (Negative)
--- NOTE | 2022-07-29 17:09 | ED.NAVMDI ---
HPI - Nausea/Vomiting/Diarrhea General Chief complaint: Nausea/Vomiting/Diarrhea Stated complaint: decreased appetite, vomiting Time Seen by Provider: 07/29/22 15:50 Source: patient and RN notes reviewed Mode of arrival: ambulatory Limitations: no limitations History of Present Illness HPI Narrative: This is a 31 year old male with history of alcohol abuse and cannabis abuse who presents for evaluation of nausea and vomiting. He states starting 6 days ago he has been having intermittent nausea and vomiting. He states he was vomiting in the waiting room, and he is unable to tolerate PO. He states that he drank alcohol a couple days ago during his illness. He reports he does not drink alcohol every day but his family told staff he is concerned patient is withdrawing. He states patient abuses alcohol and cannabis. Patient denies diarrhea, fever, chills, abdominal pain. He has noticed that his heart rate is elevated when going up steps. HE states he was dizzy during the beginning of his illness but that has improved. Related Data Home Medications Medication Instructions Recorded Confirmed escitalopram oxalate 10 mg tablet 10 mg PO DAILY 07/29/22 (Lexapro) Allergies Allergy/AdvReac Type Severity Reaction Status Date / Time No Known Allergies Allergy Unverified 07/29/17 10:49 Review of Systems Constitutional: Constitutional: Reports fatigue and Denies weakness Cardiovascular: Cardiovascular: Denies syncope, Reports rapid heart rate, Denies irregular heart rhythm, Denies leg edema and Denies dyspnea Respiratory: Respiratory: Denies chest congestion, Denies hemoptysis, Denies excessive phlegm production and Denies dyspnea Gastrointestinal: Gastrointestinal: Denies abdominal pain, Denies hematochezia, Denies diarrhea, Reports nausea and Reports vomiting Genitourinary: Genitourinary: Denies hematuria, Denies dysuria, Denies penile discharge and Denies testicular pain Musculoskeletal: Musculoskeletal: Denies joint swelling, Denies loss of height and Denies muscle weakness Neurologic: Denies syncope, Denies focal weakness and Denies weakness PMFSH Past Medical History Medical History (Updated 07/29/22 @ 21:19 by Tanika Hein MD) Hidradenitis suppurativa Surgical History Surgical History S/P small bowel resection Family History Family History Sibling Meme disease Other No family history of abnormal heart rhythm Social History Social History Social History: Patient is single. He does have a 5-year-old son. He is a full code. He currently works for the post [employer]. Smoking packs per day: 0.2 Smoking cigarettes per day: 4.0 Years smoked: 5 Smoking pack-years: 1.00 Smoking status: Former smoker Second hand tobacco smoke exposure: No Alcohol intake: current Alcohol use details: He reports drinking 1-16 oz cup of vodka 3-4 times per week. Substance use: never Substance use type: marijuana Last use: 08/24/20 Occupation/Education: occupation Additional occupation/education comments: Pt works with the post office. Gender identity (if verbalized by the patient): Male Spiritual care concerns: No Exam Narrative: GENERAL: Well-appearing, well-nourished, and in no acute distress. HEAD: Normocephalic, atraumatic EYES: PERRLA and EOMI, conjunctiva clear without discharge THROAT:Mucous membranes moist, Oropharynx normal without erythema, exudate, peritonsillar swelling or fluctuance NECK: Supple, without lymphadenopathy or mass RESPIRATORY: No respiratory distress, Airway patent, Respirations non-labored, Clear to auscultation without rales, rhonchi or wheeze HEART: Regular rate and rhythm. No murmur heard. Normal peripheral pulses. ABDOMEN: Soft, nontender, nondistended, normal active bowel sounds. No masses
[2022-07-29 17:10] LABS: Add Urine Microscopic? YES; Appearance Urine Clear (Clear); Bacteria Urine None Seen /hpf; Bilirubin Urine Negative (Negative); Blood Urine Negative (Negative); Color Urine Yellow (Yellow); Glucose Urine UA Negative (Negative); Hyaline Casts Urine Present /lpf; Ketones Urine Trace mg/dL (Negative); Leukocyte Esterase Ur Negative LEU/UL (Negative); Nitrate Urine Negative (Negative); Protein Urine 3+ mg/dL (Negative); Specific Grav Ur 1.015 (1.001-1.035); Squamous Epithelial Cell Urine None seen /hpf (Few); WBC Urine 0-5 /hpf; pH Urine 6.5 (5.0-9.0)
[2022-07-29 17:27] LABS: Amphetamine Screen Urine Negative (Negative)
[2022-07-29 18:13] LABS: INR 1.1; Prothrombin Time 14.2 Seconds (11.1-14.7)
[2022-07-29 18:14] LABS: Partial Thromboplastin Time 27.4 SECONDS (22.3-36.8)
[2022-07-29 18:21] LABS: Lactic Acid Reflex 5.1 mmol/L (0.7-2.0)
[2022-07-29 19:18] LABS: Barbiturate Screen Urine Negative (Negative); Benzodiazepines Screen Urine Negative (Negative)
[2022-07-29 19:21] LABS: Cannabinoid Screen Urine Positive (Negative); Cocaine Screen Urine Negative (Negative); Methadone Screen Urine Negative (Negative); Opiate Screen Urine Negative (Negative); Phencyclidine Screen Urine Negative (Negative)
[2022-07-29 19:42] LABS: Hepatitis B Surface Antigen Negative (Negative)
[2022-07-29 19:48] LABS: HAV RESULT Negative (Negative); Hepatitis B Core IgM Result Negative (Negative)
[2022-07-29 19:59] LABS: Hepatitis C Virus Antibody Negative (Negative)
[2022-07-29 20:56] LABS: Reflex Lactic Acid Yes or No Add Lactic
== END 2022-07-29 21:38 | disposition left against medical advice (07) ==
PROVIDERS: Emergency Medicine; Emergency Provider General Practice
DX: E86.0 Dehydration (principal); R11.2 Nausea with vomiting, unspecified; E87.20 Acidosis, unspecified; D64.9 Anemia, unspecified; K75.9 Inflammatory liver disease, unspecified; E87.6 Hypokalemia; Z87.891 Personal history of nicotine dependence; Z20.822 Contact with and (suspected) exposure to COVID-19
CPT/HCPCS: 36415; 80053; 80074; 80307; 81001; 83605; 83690; 83735; 85025; 85610; 85730; 87636; 93005; 96361; 96374; 99284; A9270; J2405; J7120

== ENCOUNTER 2022-10-10 16:28 | Emergency (ER) | payer OTHER, SELFPAY ==
[2022-10-10] VITALS (20 sets, daily range): BP systolic 111–122; BP diastolic 61–75; PULSE 87–122; RESP 12–27; TEMP 36.7–37.7; O2SAT 93–100
[2022-10-10 16:55] LABS: Basophils Percent Auto 0.8 % (0.2-1.2); Eosinophils Absolute Auto 0.1 K/mm3 (0-0.3); Eosinophils Percent Auto 2.2 % (0-4.4); Immature Granulocyte Absolute 0.01 K/mm3 (0.00-0.031); Immature Granulocyte Percent A 0.2 % (0-0.5); Lymphocytes Absolute Auto 2.07 K/mm3 (0.9-3.2); Lymphocytes Percent Auto 41.2 % (18.3-44.2); Mean Corpuscular Hemoglobin 17.3 pg (26-34); Mean Corpuscular Volume 63.8 fl (80-100); Mean Platelet Volume 8.8 fl (7.4-10.4); Monocytes Absolute Auto 0.7 K/mm3 (0.1-0.6); Monocytes Percent Auto 12.9 % (2.6-8.5); Neutrophils Absolute Auto 2.1 K/mm3 (1.3-6.7); Neutrophils Percent Auto 42.7 % (45.5-73.1); Platelet Count Result 484 k/mm3 (150-375); Red Blood Count 3.07 M/mm3 (4.6-6.20); Red Cell Distribution Width 21.6 % (11.5-14.5)
[2022-10-10 16:57] LABS: Hematocrit 19.6 % (42.0-52.0); Hemoglobin 5.3 g/dL (14.0-18.0)
[2022-10-10 17:08] LABS: INR 1.1; Prothrombin Time 14.7 Seconds (11.1-14.7)
[2022-10-10 17:09] LABS: Hypochromasia 3+ (NORMAL); Partial Thromboplastin Time 26.6 SECONDS (22.3-36.8); Platelet Estimate Increased (Adequate)
[2022-10-10 17:10] LABS: Anisocytosis 1+ (NORMAL); Microcytosis 1+ (NORMAL); Ovalocytes 1+ (NORMAL); Schistocytes None Seen (NORMAL); Tear Drop Cells 2+ (NORMAL)
[2022-10-10 17:15] LABS: Alanine Aminotransferase 21 U/L (6-50); Albumin Level 4.3 g/dL (3.5-5.1); Alkaline Phosphatase 62 U/L (38-126); Anion Gap 12 mmol/L (8-16); Aspartate Amino Transferase 34 U/L (17-59); Bilirubin,Total 0.2 mg/dL (0.2-1.3); Blood Urea Nitrogen 11 mg/dL (9-20); Calcium 9.1 mg/dL (8.4-10.2); Carbon Dioxide 25 mmol/L (22-30); Chloride 102 mmol/L (98-107); Estimated CRCL calculation 94 ml/min; Estimated Glomerular Filt Rate > 60; Ethanol < 10 mg/dL (<10); Glucose 116 mg/dL (65-110); Magnesium 1.7 mg/dL (1.6-2.3); Potassium 4.2 mmol/L (3.4-5.0); Sodium 139 mmol/L (137-145)
[2022-10-10 17:33] LABS: Iron 14 ug/dL (49-181)
--- NOTE | 2022-10-10 17:33 | ED.GENADULT ---
HPI - General Adult General Chief complaint: Recheck/Abnormal Lab/Rx Stated complaint: needs blood transfusion Time Seen by Provider: 10/10/22 17:00 History of Present Illness HPI narrative: 31-year-old male with history of alcohol abuse presented the emergency department for evaluation of anemia. Patient was told by his liver specialist that he needed to be evaluated for his anemia. Patient denies any blood in his vomit or blood in his stool. Patient not on any blood thinners. Patient does have a previous history of alcohol abuse but states he stopped drinking approximately 20 days ago. Related Data Home Medications Medication Instructions Recorded Confirmed escitalopram oxalate 10 mg tablet 10 mg PO DAILY 07/29/22 (Lexapro) Allergies Allergy/AdvReac Type Severity Reaction Status Date / Time No Known Allergies Allergy Verified 10/10/22 16:37 Review of Systems Review of Systems: All systems reviewed & are unremarkable except as noted in HPI and below PMFSH Past Medical History Medical History (Updated 10/10/22 @ 19:04 by Elliott Bills MD) Hidradenitis suppurativa Surgical History Surgical History S/P small bowel resection Family History Family History Sibling Meme disease Other No family history of abnormal heart rhythm Social History Social History Social History: Patient is single. He does have a 5-year-old son. He is a full code. He currently works for the [employer]. Smoking packs per day: 0.2 Smoking cigarettes per day: 4.0 Years smoked: 5 Smoking pack-years: 1.00 Smoking status: Former smoker Second hand tobacco smoke exposure: No Alcohol intake: current Alcohol use details: He reports drinking 1-16 oz cup of vodka 3-4 times per week. Substance use: never Substance use type: marijuana Last use: 08/24/20 Occupation/Education: occupation Additional occupation/education comments: Pt works with the post office. Gender identity (if verbalized by the patient): Male Spiritual care concerns: No Exam Narrative: APPEARANCE: Well appearing, no pain, no distress, well-nourished. HEAD: normocephalic, atraumatic. EYES: PERRLA/EOMI, conjunctivae clear. NOSE: Normal no drainage EARS:TMS clear with good light reflex. THROAT: Pharynx clear, no exudate. NECK: Supple. No adenopathy, no masses. RESPIRATORY: Airway patent, respirations nonlabored. Clear to auscultation bilaterally, no rales, rhonchi, wheezing. CARDIOVASCULAR: Regular rate and rhythm without murmurs rubs or gallops. ABDOMINAL: Soft, nontender, nondistended, normal bowel sounds Rectal exam: Patient was Hemoccult negative on the JERAMY MUSCULOSKELETAL: Moves all extremities. Strength/ROM intact, No edema, No calf tenderness. NEURO: Alert. Cranial nerves II through XII intact. SKIN: Warm, dry. Normal Color Course Course Emergency Course: 31-year-old male presented to ED for evaluation of anemia. Patient denies any active bleeding. Patient was offered admission but patient declined. Patient did have 2 L of packed red blood cells that were ordered. Vital Signs Vital signs: Vital Signs Temperature 98.1 F 10/10/22 16:33 Pulse Rate 107 H 10/10/22 16:33 Respiratory Rate 20 10/10/22 16:33 Blood Pressure 115/71 10/10/22 16:33 Pulse Oximetry 99 10/10/22 16:33 Oxygen Delivery Room Air 10/10/22 16:33 Temperature 98.6 F 10/10/22 20:33 Pulse Rate 87 10/10/22 20:33 Respiratory Rate 22 H 10/10/22 20:33 Blood Pressure 118/61 10/10/22 20:33 Pulse Oximetry 100 10/10/22 20:33 Oxygen Delivery Room Air 10/10/22 16:33 Medical Decision Making Vital Signs Vital Signs: Vital Signs Temperature 98.1 F 10/10/22 16:33 Pulse Rate 107 H 10/10/22 16:33 Respiratory Rate 20 10/10/22 16:3
[2022-10-10 17:42] LABS: Percent Iron Saturation 3 % (20-50)
[2022-10-10] MEDS: TUBING, BLOOD SET 1 EACH XX ×2 (19:20→20:18)
[2022-10-10] MEDS: SODIUM CHLORIDE 0.9% IV 250 ML 30 ML IV CONT (19:20)
--- NOTE | 2022-10-10 19:37 | PC.NURSE ---
patient tolerating first unit of PRBCs. resting in bed at this time. call light within reach.
[2022-10-10] MEDS: SODIUM CHLORIDE 0.9% IV 250 ML (20:18)
[2022-10-11 00:39] LABS: Folic Acid 17.1 ng/mL (2.76->20)
== END 2022-10-10 21:19 | disposition home or self-care (01) ==
PROVIDERS: General Practice; Emergency Provider Emergency Medicine
DX: D64.9 Anemia, unspecified (principal)
CPT/HCPCS: 36415; 36430; 80053; 80307; 82607; 82746; 83540; 83550; 83735; 85025; 85610; 85730; 86850; 86900; 86901; 86923; 96360; 96361; 99285; J7050; P9016

== ENCOUNTER 2023-02-15 11:29 | Emergency (ER) | payer OTHER, SELFPAY ==
[2023-02-15] VITALS (39 sets, daily range): BP systolic 108–156; BP diastolic 74–109; PULSE 72–120; RESP 10–21; TEMP 36.6–37.3; O2SAT 99–100
--- NOTE | ~2023-02-15 | XR_ITS ---
EXAMINATION: XR chest 2V 02/15/2023 13:59 INDICATION: Shortness of breath and anemia PROCEDURE: 2 view chest COMPARISON: No prior studies for comparison. FINDINGS: The lungs are clear. The cardiomediastinal silhouette is within normal limits. There are no pleural effusions. There is no pneumothorax suspected. Hair hailey are noted overlying the upper thorax. IMPRESSION: 1: NO ACUTE CARDIOPULMONARY DISEASE. Reviewed, dictated and finalized at location L. HEAD MAT INSPECTOR
[2023-02-15 12:38] LABS: Hematocrit 23.6 % (42.0-52.0); Immature Platelet Fraction Pct 1.9 % (0.9-11.2); Mean Corpuscular HGB Conc 26.3 g/dl (32-36); Mean Corpuscular Hemoglobin 18.1 pg (26-34); Mean Corpuscular Volume 68.8 fl (80-100); Mean Platelet Volume 8.4 fl (7.4-10.4); Platelet Count Result 142 k/mm3 (150-375); Red Blood Count 3.43 M/mm3 (4.6-6.20); Red Cell Distribution Width 20.6 % (11.5-14.5)
[2023-02-15 12:57] LABS: White Blood Count 1.9 K/mm3 (4.5-10.0)
[2023-02-15 12:58] LABS: Hemoglobin 6.2 g/dL (14.0-18.0)
[2023-02-15 13:21] LABS: Anisocytosis 1+ (NORMAL); Eosinophils Absolute Manual 0.01 K/mm3 (0.02-0.5); Eosinophils Percent Manual 1 % (0-4); Hypochromasia 2+ (NORMAL); Monocytes Absolute Manual 0.05 K/mm3 (0.1-0.90); Monocytes Percent Manual 3 % (3-9); Neutrophils Percent Manual 38 % (46-73); Platelet Estimate Adequate (Adequate); Poikilocytosis 1+ (NORMAL); Schistocytes 1+ (NORMAL); Total Cells Counted 100
[2023-02-15 13:22] LABS: Ovalocytes 1+ (NORMAL); Tear Drop Cells 1+ (NORMAL)
--- NOTE | 2023-02-15 13:37 | ECG_ITS ---
Measurements Intervals [place] Rate: 77 P: 43 [place]: 135 QRS: 29 QRSD: 105 T: 33 QT: 387 QTc: 440 Interpretive Statements SINUS RHYTHM NONSPECIFIC T-WAVE ABNORMALITY- INFERIOR LEADS BORDERLINE ECG COMPARED TO ECG 07/29/2022 13:53:24 SINUS RHYTHM NOW PRESENT Electronically Signed On 02-15-2023 14:32:17 RESEARCH EPIDEMIOLOGIST by Parth Yadav D.O.
[2023-02-15 13:53] LABS: Alanine Aminotransferase 40 U/L (6-50); Albumin Level 4.6 g/dL (3.5-5.1); Alkaline Phosphatase 148 U/L (38-126); Anion Gap 17 mmol/L (8-16); Aspartate Amino Transferase 103 U/L (17-59); Bilirubin,Total 0.5 mg/dL (0.2-1.3); Blood Urea Nitrogen 8 mg/dL (9-20); Calcium 8.8 mg/dL (8.4-10.2); Carbon Dioxide 26 mmol/L (22-30); Chloride 100 mmol/L (98-107); Estimated CRCL calculation 117 ml/min; Estimated Glomerular Filt Rate > 60; Glucose 147 mg/dL (65-110); Potassium 3.7 mmol/L (3.4-5.0); Sodium 143 mmol/L (137-145)
[2023-02-15 14:04] LABS: INR 1.1; Prothrombin Time 14.6 Seconds (11.1-14.7)
[2023-02-15 14:05] LABS: Partial Thromboplastin Time 28.5 SECONDS (22.3-36.8)
[2023-02-15] MEDS: TETANUS,DIPHTHERIA,AC PERTUSSIS ADULT (0.5 ML) BOOSTRIX IM (14:31)
[2023-02-15] MEDS: SODIUM CHLORIDE 0.9% IV 250 ML 30 ML IV CONT (14:32)
--- NOTE | 2023-02-15 14:34 | ED.GENADULT ---
HPI - General Adult General Chief complaint: Unspecified Stated complaint: REQUESTS BLOOD TRANSFUSION AND HAS DOG BITE Time Seen by Provider: 02/15/23 13:21 Source: patient, RN notes reviewed and old records reviewed Mode of arrival: ambulatory Limitations: no limitations History of Present Illness HPI narrative: This is a 32 year old male with history of anemia, partial gastrectomy who presents for evaluation of anemia and dog bite. PAtient states he was bitten by a dog to his left index finger yesterday. He denies any pain to his finger but request tetanus shot. He also thinks he needs blood transfusion. He reports fatigue over the past several days. He states he only wants to sleep. He also reports intermittent decreased appetite with nausea and vomiting. He reports shortness of breath. Today he feels better but he came to ER for blood transfusion and evaluation of his dog bite. He states he has not been taking his iron supplementation consistently and he started retaking 2 weeks ago. He has appointment with GI at [facility] in March. He thinks he had labs and blood transfusion 3 months ago at [facility]. Related Data Home Medications Medication Instructions Recorded Confirmed escitalopram oxalate 10 mg tablet 10 mg PO DAILY 07/29/22 (Lexapro) Allergies Allergy/AdvReac Type Severity Reaction Status Date / Time No Known Allergies Allergy Verified 10/10/22 16:37 Review of Systems Constitutional: Constitutional: Reports lethargy and Reports weakness Cardiovascular: Cardiovascular: Denies syncope, Denies rapid heart rate, Denies irregular heart rhythm, Denies leg edema, Reports dyspnea and Reports dyspnea on exertion Respiratory: Respiratory: Denies chest congestion, Denies hemoptysis, Denies excessive phlegm production and Denies dyspnea Gastrointestinal: Gastrointestinal: Denies abdominal pain, Denies hematochezia, Denies diarrhea, Reports nausea and Reports vomiting Genitourinary: Genitourinary: Denies hematuria, Denies dysuria, Denies penile discharge and Denies testicular pain Musculoskeletal: Musculoskeletal: Denies joint swelling, Denies loss of height and Denies muscle weakness Neurologic: Denies syncope, Denies focal weakness and Denies weakness PMFSH Past Medical History Medical History (Updated 02/15/23 @ 20:39 by Tanika Hein MD) Hidradenitis suppurativa Iron deficiency anemia Surgical History Surgical History S/P small bowel resection Family History Family History Sibling Meme disease Other No family history of abnormal heart rhythm Social History Social History Social History: Patient is single. He does have a 5-year-old son. He is a full code. He currently works for the [employer]. Smoking packs per day: 0.2 Smoking cigarettes per day: 4.0 Years smoked: 5 Smoking pack-years: 1.00 Smoking status: Former smoker Second hand tobacco smoke exposure: No Alcohol intake: current Alcohol use details: He reports drinking 1-16 oz cup of vodka 3-4 times per week. Substance use: never Substance use type: marijuana Last use: 08/24/20 Occupation/Education: occupation Additional occupation/education comments: Pt works with the post office. Gender identity (if verbalized by the patient): Male Spiritual care concerns: No Exam Narrative: GENERAL: Well-appearing, , and in no acute distress. HEAD: Normocephalic, atraumatic EYES: PERRLA and EOMI, conjunctiva clear without discharge EARS: TM's clear bilaterally without erythema or dullness THROAT:Mucous membranes moist, Oropharynx normal without erythema, exudate, peritonsillar swelling or fluctuance NECK: Supple, without lymphadenopathy or mass RESPIRATORY: No respiratory distress, Airway patent, Respirations non-labored, Clear to auscult
== END 2023-02-15 18:23 | disposition left against medical advice (07) ==
PROVIDERS: Emergency Medicine; Emergency Provider General Practice
DX: S61.251A Open bite of left index finger without damage to nail, initial encounter (principal); D50.9 Iron deficiency anemia, unspecified; Z23 Encounter for immunization; Z90.49 Acquired absence of other specified parts of digestive tract; W54.0XXA Bitten by dog, initial encounter; R94.31 Abnormal electrocardiogram [ECG] [EKG]
CPT/HCPCS: 36415; 36430; 71046; 80053; 85025; 85055; 85610; 85730; 86850; 86900; 86901; 86923; 90471; 90715; 93005; 96360; 99283; 99285; J7050; P9016